=== PATIENT | male | born 1955 | race Caucasian/White ===

== ENCOUNTER 2021-07-08 06:07 | Observation (INO) | payer MEDICARE ==
[~2021-07-08] VITALS: Ht 180.3 cm; Wt 167.8 kg
[2021-07-08] MEDS ORDERED: ONDANSETRON HCL INJ 2MG/ML 2ML 2 MG/ML VIAL IV STA (06:19)
[2021-07-08] MEDS ORDERED: Morphine 2mg Syringe 2 MG/ML SYR IV STA (06:19)
[2021-07-08] MEDS ORDERED: ASPIRIN 81 MG CHEW TAB PO STA (06:19)
[2021-07-08] MEDS ORDERED: NITROGLYCERIN 2% OINT 1 GM PKT TOP ONE (06:30)
[2021-07-08 06:36] LABS: BASOPHILS # (AUTO) 0.1 (0.0-0.1); BASOPHILS % 0.8 % (0.0-1.0); EOSINOPHILS # (AUTO) 0.3 (0.0-0.4); EOSINOPHILS % 2.9 % (0.0-6.0); HEMOGLOBIN 13.3 g/dL (14.0-18.0); LYMPHOCYTES % 18.1 % (18.0-39.1); MEAN CORPUSCULAR HEMOGLOBIN 28.5 pg (28-32); MEAN CORPUSCULAR HGB CONC 30.9 g/dL (31-35); MEAN CORPUSCULAR VOLUME 92.1 fL (81-99); MONOCYTES # (AUTO) 1.2 (0.2-0.8); MONOCYTES % 10.8 % (4.4-11.3); NEUTROPHILS # (AUTO) 7.6 (2.1-6.9); PLATELET COUNT 306 x10e3/uL (140-360); RED BLOOD COUNT 4.67 x10e6/uL (4.3-5.7); RED CELL DISTRIBUTION WIDTH 14.7 % (11.7-14.4)
[2021-07-08 06:51] LABS: INR 0.95; PROTHROMBIN TIME 13.6 seconds (11.9-14.5)
[2021-07-08 06:52] LABS: PARTIAL THROMBOPLASTIN TIME 26.9 seconds (23.8-35.5)
[2021-07-08 06:58] LABS: ALBUMIN 3.5 g/dL (3.5-5.0); ALBUMIN/GLOBULIN RATIO 0.9 (0.8-2.0); ANION GAP 14.1 mmol/L (8-16); CREATININE, SERUM 1.14 mg/dL (0.72-1.25); MAGNESIUM 1.9 MG/DL (1.3-2.1); POTASSIUM 4.1 mmol/L (3.5-5.1)
[2021-07-08 07:06] LABS: CREATINE KINASE MB 1.8 ng/mL (0-5.0)
[2021-07-08] MEDS ORDERED: IOPAMIDOL 370 MG/ML 100 ML INFUS..BTL INJ ONE (07:38)
[2021-07-08] MEDS: DEXAMETHASONE SOD PHOS 10 MG/1 ML VIAL IV SCH (08:10)
[2021-07-08] MEDS ORDERED: FUROSEMIDE INJ 10 MG/ML 4 ML VIAL IV ONE (09:00)
[2021-07-08] MEDS: ASPIRIN 81 MG ENTERIC COATED PO SCH (09:00)
[2021-07-08] MEDS ORDERED: ONDANSETRON HCL INJ 2MG/ML 2ML 2 MG/ML VIAL IV PRN (09:00)
[2021-07-08] MEDS ORDERED: DEXAMETHASONE SOD PHOS 10 MG/1 ML VIAL IV SCH (09:00)
[2021-07-08] MEDS ORDERED: HYDRALAZINE HCL 20 MG/ML VIAL IV PRN (09:00)
[2021-07-08] MEDS ORDERED: Morphine 2mg Syringe 2 MG/ML SYR IV PRN (09:00)
[2021-07-08] MEDS: FAMOTIDINE 20 MG/2 ML VIAL IV SCH ×2 (10:15→21:30)
[2021-07-08 10:17] LABS: BACTERIA,URINE FEW /HPF; CLARITY,URINE CLEAR (CLEAR); COLOR,URINE YELLOW (YELLOW); EPITHELIAL CELLS,URINE FEW /LPF; KETONES,URINE NEGATIVE (NEGATIVE); LEUKOCYTE ESTERASE ,URINE NEGATIVE (NEGATIVE); NITRITE,URINE NEGATIVE (NEGATIVE); PROTEIN,URINE DIPSTICK NEGATIVE (NEGATIVE); URINE UROBILINOGEN 0.2 mg/dL (0.2 - 1); WBC,URINE (MAN) 0-5 /HPF (0-5)
[2021-07-08] MEDS ORDERED: BEBTELOVIMAB 175 MG INJ IV ONE (11:00)
[2021-07-08] MEDS: NITROGLYCERIN 2% OINT 1 GM PKT TOP SCH ×2 (11:43→17:43)
[2021-07-08] MEDS ORDERED: ALBUTEROL SULFATE HFA 8GM INHALATION AEROSOL INH PRN (12:30)
[2021-07-08] MEDS: LISINOPRIL 10 MG TAB PO SCH (13:10)
[2021-07-08 17:00] VITALS: BP 159/74
[2021-07-08 17:13] VITALS: BP 146/81
[2021-07-08 17:15] VITALS: BP 146/81
[2021-07-08] MEDS ORDERED: LOSARTAN-HCTZ1 EAC2 (18:33)
[2021-07-08 20:00] VITALS: BP 136/82
[2021-07-08 20:36] LABS: CREATINE KINASE MB 1.8 ng/mL (0-5.0)
[2021-07-08 21:00] VITALS: BP 136/82
[2021-07-09] VITALS: BP 132/66
[2021-07-09] MEDS: NITROGLYCERIN 2% OINT 1 GM PKT TOP SCH ×4 (06:00→13:23)
[2021-07-09 06:11] LABS: BASOPHILS % 0.2 % (0.0-1.0); EOSINOPHILS # (AUTO) 0.1 (0.0-0.4); EOSINOPHILS % 0.9 % (0.0-6.0); HEMATOCRIT 38.9 % (38.2-49.6); HEMOGLOBIN 12.1 g/dL (14.0-18.0); LYMPHOCYTES # (AUTO) 1.3 (1.0-3.2); LYMPHOCYTES % 11.8 % (18.0-39.1); MEAN CORPUSCULAR HEMOGLOBIN 28.5 pg (28-32); MEAN CORPUSCULAR HGB CONC 31.1 g/dL (31-35); MEAN CORPUSCULAR VOLUME 91.5 fL (81-99); MONOCYTES # (AUTO) 1.2 (0.2-0.8); MONOCYTES % 11.5 % (4.4-11.3); NEUTROPHILS # (AUTO) 8.1 (2.1-6.9); NEUTROPHILS % 75.1 % (38.7-80.0); PLATELET COUNT 311 x10e3/uL (140-360); RED BLOOD COUNT 4.25 x10e6/uL (4.3-5.7); RED CELL DISTRIBUTION WIDTH 14.6 % (11.7-14.4)
[2021-07-09 06:29] LABS: CREATINE KINASE 152 IU/L (30-200)
[2021-07-09 06:32] LABS: ALBUMIN 3.2 g/dL (3.5-5.0); ALBUMIN/GLOBULIN RATIO 0.9 (0.8-2.0); CALCIUM 8.2 mg/dL (8.4-10.2); CHOL/HDL RATIO 3.5 (3.9-4.7); CREATININE, SERUM 1.04 mg/dL (0.72-1.25)
[2021-07-09 08:08] VITALS: BP 160/83
[2021-07-09 08:29] VITALS: BP 160/83
[2021-07-09] MEDS ORDERED: IBUPROFEN400 MG PO (08:49)
[2021-07-09] MEDS ORDERED: ASPIRIN CHEW81 MG PO (08:49)
[2021-07-09] MEDS ORDERED: FUROSEMIDE INJ 10 MG/ML 4 ML VIAL IV SCH (09:00)
[2021-07-09] MEDS ORDERED: POTASSIUM CHLORIDE 10MEQ EA PO SCH (09:00)
[2021-07-09] MEDS: FAMOTIDINE 20 MG/2 ML VIAL IV SCH (09:07)
[2021-07-09] MEDS: ASPIRIN 81 MG ENTERIC COATED PO SCH (09:07)
[2021-07-09] MEDS: LISINOPRIL 10 MG TAB PO SCH (09:08)
[2021-07-09 12:34] VITALS: BP 167/76
[2021-07-09] MEDS ORDERED: NIRMATRELVIR/RITONAVIR 1 EACH TABLET PO SCH (14:00)
== END 2021-07-09 14:40 | disposition home or self-care (01) ==
LOC: ER 06:20 → ERHOLD 08:54 → INTOOBSV 08:54 → MED/SURG3 17:02
PROVIDERS: ADMIT Internal Medicine; ATTEND Internal Medicine
DX: U07.1 COVID-19 (principal); J12.82 Pneumonia due to coronavirus disease 2019; E78.5 Hyperlipidemia, unspecified; E66.01 Morbid (severe) obesity due to excess calories; I16.1 Hypertensive emergency; I11.0 Hypertensive heart disease with heart failure; I50.9 Heart failure, unspecified; S22.42XA Multiple fractures of ribs, left side, initial encounter for closed fracture; W19.XXXA Unspecified fall, initial encounter; N40.0 Benign prostatic hyperplasia without lower urinary tract symptoms; Z68.43 Body mass index [BMI] 50.0-59.9, adult; Z83.3 Family history of diabetes mellitus; Z77.090 Contact with and (suspected) exposure to asbestos; Z88.0 Allergy status to penicillin; M94.0 Chondrocostal junction syndrome [Tietze]
CPT/HCPCS: 36415 ×2; 36556; 71045; 71260; 76937; 80053 ×2; 80061; 81001; 82550 ×2; 82553 ×2; 83735; 83880; 84484 ×2; 85025 ×2; 85610; 85730; 87040; 87086; 93005; 93306; 93970; 94760; 94799; 97139; 99284; G0378 ×2; J0360; J1100; J1940 ×2; J2270; J2405; Q9967; U0002

== ENCOUNTER → 2023-10-12 | Emergency (ER) | payer MEDICARE ==
[~2023-10-12] VITALS: Ht 180.3 cm; Wt 142.0 kg
[~2023-10-12] MED LIST: ASPIRIN CHEW81 MG PO; IBUPROFEN400 MG PO; LOSARTAN-HCTZ1 EAC2
[2023-10-12 16:58] VITALS: PULSE 70; RESP 16; TEMP 98.5; O2SAT 100
[2023-10-12 17:36] LABS: INR 0.97; PROTHROMBIN TIME 13.4 seconds (11.9-14.5)
== END | disposition home or self-care (01) ==
LOC: ER 17:00
DX: D68.9 Coagulation defect, unspecified (principal); I10 Essential (primary) hypertension; I48.91 Unspecified atrial fibrillation; E78.5 Hyperlipidemia, unspecified; H54.62 Unqualified visual loss, left eye, normal vision right eye; Z86.73 Personal history of transient ischemic attack (TIA), and cerebral infarction without residual deficits
CPT/HCPCS: 36415; 85610; 99283

== ENCOUNTER 2024-04-10 12:50 | Inpatient (IN) | payer MEDICARE ==
[~2024-04-10] VITALS: Ht 180.3 cm; Wt 142.0 kg
[2024-04-10 13:53] LABS: BASOPHILS % 0.5 % (0.0-1.0); EOSINOPHILS # (AUTO) 0.2 (0.0-0.4); EOSINOPHILS % 2.8 % (0.0-6.0); HEMATOCRIT 42.4 % (38.2-49.6); HEMOGLOBIN 13.8 g/dL (14.0-18.0); LYMPHOCYTES # (AUTO) 1.3 (1.0-3.2); LYMPHOCYTES % 20.1 % (18.0-39.1); MEAN CORPUSCULAR HEMOGLOBIN 30.3 pg (28-32); MEAN CORPUSCULAR HGB CONC 32.5 g/dL (31-35); MEAN CORPUSCULAR VOLUME 93.2 fL (81-99); MONOCYTES # (AUTO) 0.6 (0.2-0.8); MONOCYTES % 8.5 % (4.4-11.3); NEUTROPHILS # (AUTO) 4.4 (2.1-6.9); NEUTROPHILS % 67.8 % (38.7-80.0); PLATELET COUNT 244 x10e3/uL (140-360); RED BLOOD COUNT 4.55 x10e6/uL (4.3-5.7); RED CELL DISTRIBUTION WIDTH 14.2 % (11.7-14.4); WHITE BLOOD COUNT 6.48 x10e3/uL (4.8-10.8)
[2024-04-10 14:14] LABS: ALBUMIN 3.7 g/dL (3.5-5.0); ALBUMIN/GLOBULIN RATIO 1.2 (0.8-2.0); ANION GAP 14.1 mmol/L (8-16); BILIRUBIN,TOTAL 0.4 mg/dL (0.2-1.2); CALCIUM 8.8 mg/dL (8.4-10.2); CREATININE, SERUM 1.03 mg/dL (0.72-1.25); POTASSIUM 4.1 mmol/L (3.5-5.1); TOTAL PROTEIN 6.9 g/dL (6.5-8.1)
[2024-04-10 15:08] VITALS: TEMP 98.8
[2024-04-10] MEDS ORDERED: ONDANSETRON HCL INJ 2MG/ML 2ML 2 MG/ML VIAL IV PRN (16:00)
[2024-04-10] MEDS ORDERED: SODIUM CHLORIDE FLUSH 10 ML SYR INJ PRN (16:00)
[2024-04-10 16:19] LABS: BACTERIA,URINE FEW /HPF; BILIRUBIN,URINE NEGATIVE (NEGATIVE); CLARITY,URINE TURBID (CLEAR); COLOR,URINE YELLOW (YELLOW); EPITHELIAL CELLS,URINE FEW /LPF; GLUCOSE, URINE NEGATIVE (NEGATIVE); KETONES,URINE NEGATIVE (NEGATIVE); LEUKOCYTE ESTERASE ,URINE LARGE (NEGATIVE); NITRITE,URINE NEGATIVE (NEGATIVE); PH,URINE 6.5 (5 - 7); PROTEIN,URINE DIPSTICK NEGATIVE (NEGATIVE); URINE UROBILINOGEN 0.2 mg/dL (0.2 - 1); WBC,URINE (MAN) >50 /HPF (0-5)
[2024-04-10 17:45] VITALS: PULSE 58; RESP 16
[2024-04-10 18:20] VITALS: BP 148/89; PULSE 61; RESP 19; TEMP 98.2; O2SAT 98
[2024-04-10] MEDS ORDERED: ACETAMINOPHEN 325 MG TAB PO PRN (18:45)
[2024-04-10] MEDS ORDERED: SIMETHICONE 80 MG CHEW PO PRN (18:45)
[2024-04-10] MEDS ORDERED: DOCUSATE SODIUM 100 MG CAP PO PRN (18:45)
[2024-04-10] MEDS ORDERED: ALBUTEROL/IPRATROPIUM 3 ML NEB NEB PRN (18:45)
[2024-04-10 20:00] VITALS: BP_SYST 173; BP_SYST 176; BP_DIAS 88; BP_DIAS 91; PULSE 62; PULSE 63; RESP 17; RESP 20; TEMP 98; TEMP 98.2; O2SAT 95; O2SAT 98
[2024-04-10] MEDS ORDERED: MELATONIN 3 MG TAB PO PRN (21:00)
[2024-04-10 23:19] VITALS: BP 173/91; PULSE 63
[2024-04-10] MEDS: HYDRALAZINE HCL 20 MG/ML VIAL IV STA ×2 (23:28)
[2024-04-11] MEDS ORDERED: POTASSIUM CHLO10 ME1 PO (01:20)
[2024-04-11] MEDS ORDERED: HYDROXYZIN10 MG/5 ML PO ×2 (01:20→01:27)
[2024-04-11] MEDS ORDERED: CARVEDILOL3.125 MG PO (01:20)
[2024-04-11] MEDS ORDERED: MEMANTINE HCL5 MG (01:20)
[2024-04-11] MEDS ORDERED: WARFARIN SODIUM3 MG PO (01:20)
[2024-04-11] MEDS ORDERED: FUROSEMIDE40 MG PO (01:20)
[2024-04-11] MEDS ORDERED: ALPRAZOLAM0.25 M1 PO (01:20)
[2024-04-11] MEDS ORDERED: ATORVASTATIN CA80 MG PO (01:20)
[2024-04-11] MEDS ORDERED: LEVETIRACETAM500 MG PO (01:20)
[2024-04-11] MEDS ORDERED: OXCARBAZEPINE300 MG PO (01:20)
[2024-04-11] MEDS ORDERED: BENZONATATE100 MG PO (01:20)
[2024-04-11] MEDS ORDERED: FLOMAX0.4 MG PO (01:20)
[2024-04-11] MEDS ORDERED: LISINOPRIL10 MG PO (01:20)
[2024-04-11] MEDS ORDERED: HYDROXYZINE HCL10 MG PO (01:31)
[2024-04-11] MEDS: METOPROLOL TARTRATE INJ 1 MG/ML VIAL IV PRN (01:45)
[2024-04-11 02:54] VITALS: BP 174/82; PULSE 68; RESP 20; TEMP 98.5; O2SAT 100
[2024-04-11 06:02] LABS: BASOPHILS % 0.5 % (0.0-1.0); EOSINOPHILS # (AUTO) 0.2 (0.0-0.4); EOSINOPHILS % 2.1 % (0.0-6.0); HEMATOCRIT 38.8 % (38.2-49.6); HEMOGLOBIN 12.8 g/dL (14.0-18.0); LYMPHOCYTES # (AUTO) 1.9 (1.0-3.2); LYMPHOCYTES % 24.1 % (18.0-39.1); MEAN CORPUSCULAR HEMOGLOBIN 30.6 pg (28-32); MEAN CORPUSCULAR VOLUME 92.8 fL (81-99); MONOCYTES # (AUTO) 0.8 (0.2-0.8); MONOCYTES % 9.7 % (4.4-11.3); NEUTROPHILS # (AUTO) 4.9 (2.1-6.9); NEUTROPHILS % 63.3 % (38.7-80.0); PLATELET COUNT 232 x10e3/uL (140-360); RED BLOOD COUNT 4.18 x10e6/uL (4.3-5.7); RED CELL DISTRIBUTION WIDTH 13.7 % (11.7-14.4); WHITE BLOOD COUNT 7.76 x10e3/uL (4.8-10.8)
[2024-04-11 06:40] LABS: ALBUMIN 3.4 g/dL (3.5-5.0); ALBUMIN/GLOBULIN RATIO 1.2 (0.8-2.0); ANION GAP 11.7 mmol/L (8-16); BILIRUBIN,TOTAL 0.6 mg/dL (0.2-1.2); CALCIUM 8.7 mg/dL (8.4-10.2); CREATININE, SERUM 0.81 mg/dL (0.72-1.25); POTASSIUM 3.7 mmol/L (3.5-5.1); TOTAL PROTEIN 6.2 g/dL (6.5-8.1)
[2024-04-11 08:00] VITALS: BP 168/85; PULSE 73; RESP 18; TEMP 97.5; O2SAT 98
[2024-04-11] MEDS: ASPIRIN 81 MG CHEW TAB PO SCH (08:46)
[2024-04-11 09:51] VITALS: BP 168/85; PULSE 73; RESP 18; TEMP 97.5; O2SAT 98
[2024-04-11] MEDS: HYDROCORTISONE .5% 30 GM TUBE TOP SCH (10:17)
[2024-04-11] MEDS: HYDROXYZINE PAMOATE 25 MG CAP PO SCH (10:17)
[2024-04-11 12:00] VITALS: BP 166/81; PULSE 60; RESP 19; TEMP 97.7; O2SAT 98
[2024-04-11 16:00] VITALS: BP 149/87; PULSE 63; RESP 18; TEMP 97.8; O2SAT 95
[2024-04-11] MEDS: ENOXAPARIN SOD INJ 40 MG/0.4 ML SYR SC SCH (17:37)
[2024-04-11 20:00] VITALS: BP_SYST 136; BP_SYST 149; BP_DIAS 69; BP_DIAS 87; PULSE 58; PULSE 65; RESP 18; RESP 20; TEMP 97.6; O2SAT 99
[2024-04-12] VITALS: BP 158/95; PULSE 55; RESP 18; TEMP 97.2; O2SAT 100
[2024-04-12 04:00] VITALS: BP 173/92; PULSE 58; RESP 17; TEMP 97.1; O2SAT 99
[2024-04-12 08:00] VITALS: BP 136/84; PULSE 88; RESP 17; TEMP 98.2; O2SAT 98
[2024-04-12 09:00] VITALS: BP 136/74; PULSE 84; RESP 16; TEMP 98.2; O2SAT 99
[2024-04-12] MEDS ORDERED: CEPHALEXIN500 MG PO (10:24)
[2024-04-12 12:42] VITALS: PULSE 86; RESP 18; O2SAT 97
== END 2024-04-12 20:12 | disposition home or self-care (01) | DRG 690 ==
LOC: ER 13:40 → ERHOLD 15:50 → MED/SURG3 18:20
PROVIDERS: ADMIT Internal Medicine; ATTEND Internal Medicine
DX: N39.0 Urinary tract infection, site not specified (principal); I48.20 Chronic atrial fibrillation, unspecified; Z16.24 Resistance to multiple antibiotics; I10 Essential (primary) hypertension; G30.9 Alzheimer's disease, unspecified; F02.80 Dementia in other diseases classified elsewhere, unspecified severity, without behavioral disturbance, psychotic disturbance, mood disturbance, and anxiety; B96.89 Other specified bacterial agents as the cause of diseases classified elsewhere; Z79.82 Long term (current) use of aspirin; Z86.73 Personal history of transient ischemic attack (TIA), and cerebral infarction without residual deficits; Z86.16 Personal history of COVID-19
CPT/HCPCS: 36415; 80053; 81001; 85025; 87086; 94799; 99252; 99284; J0360; J0696; J1650; Q0177

== ENCOUNTER 2024-08-28 10:31 | Emergency (ER) | payer MEDICARE ==
[~2024-08-28] VITALS: Ht 180.3 cm; Wt 137.9 kg
[~2024-08-28 10:31] MED LIST changes: +ALPRAZOLAM0.25 M1 PO; +ATORVASTATIN CA80 MG PO; +BENZONATATE100 MG PO; +CARVEDILOL3.125 MG PO; +CEPHALEXIN500 MG PO; +FLOMAX0.4 MG PO; +FUROSEMIDE40 MG PO; +HYDROXYZIN10 MG/5 ML PO; +HYDROXYZINE HCL10 MG PO; +LEVETIRACETAM500 MG PO; +LISINOPRIL10 MG PO; +MEMANTINE HCL5 MG; +OXCARBAZEPINE300 MG PO; +POTASSIUM CHLO10 ME1 PO; +WARFARIN SODIUM3 MG PO
[2024-08-28 10:56] VITALS: PULSE 65; RESP 16; TEMP 98.1; O2SAT 100
[2024-08-28 12:08] LABS: BASOPHILS % 0.5 % (0.0-1.0); EOSINOPHILS # (AUTO) 0.2 (0.0-0.4); EOSINOPHILS % 2.8 % (0.0-6.0); HEMATOCRIT 40.8 % (38.2-49.6); HEMOGLOBIN 13.3 g/dL (14.0-18.0); LYMPHOCYTES # (AUTO) 1.3 (1.0-3.2); LYMPHOCYTES % 21.6 % (18.0-39.1); MEAN CORPUSCULAR HEMOGLOBIN 30.5 pg (28-32); MEAN CORPUSCULAR HGB CONC 32.6 g/dL (31-35); MEAN CORPUSCULAR VOLUME 93.6 fL (81-99); MONOCYTES # (AUTO) 0.8 (0.2-0.8); MONOCYTES % 12.2 % (4.4-11.3); NEUTROPHILS # (AUTO) 3.9 (2.1-6.9); NEUTROPHILS % 62.7 % (38.7-80.0); PLATELET COUNT 217 x10e3/uL (140-360); RED BLOOD COUNT 4.36 x10e6/uL (4.3-5.7); RED CELL DISTRIBUTION WIDTH 13.6 % (11.7-14.4); WHITE BLOOD COUNT 6.15 x10e3/uL (4.8-10.8)
[2024-08-28 12:24] LABS: INR 2.8; PARTIAL THROMBOPLASTIN TIME 39.1 seconds (23.8-35.5); PROTHROMBIN TIME 31.5 seconds (11.9-14.5)
[2024-08-28 12:26] LABS: BILIRUBIN,URINE NEGATIVE (NEGATIVE); CLARITY,URINE CLEAR (CLEAR); COLOR,URINE YELLOW (YELLOW); GLUCOSE, URINE NEGATIVE (NEGATIVE); KETONES,URINE NEGATIVE (NEGATIVE); LEUKOCYTE ESTERASE ,URINE SMALL (NEGATIVE); NITRITE,URINE NEGATIVE (NEGATIVE); PH,URINE 5.5 (5 - 7); PROTEIN,URINE DIPSTICK NEGATIVE (NEGATIVE); URINE UROBILINOGEN 1 mg/dL (0.2 - 1)
[2024-08-28 12:35] LABS: ALBUMIN 3.6 g/dL (3.5-5.0); ALBUMIN/GLOBULIN RATIO 1.2 (0.8-2.0); ANION GAP 12.2 mmol/L (8-16); BILIRUBIN,TOTAL 0.7 mg/dL (0.2-1.2); CALCIUM 8.7 mg/dL (8.4-10.2); CREATININE, SERUM 1.09 mg/dL (0.72-1.25); MAGNESIUM 1.7 MG/DL (1.3-2.1); POTASSIUM 4.2 mmol/L (3.5-5.1); TOTAL PROTEIN 6.7 g/dL (6.5-8.1)
[2024-08-28 12:37] LABS: BACTERIA,URINE MODERATE /HPF; EPITHELIAL CELLS,URINE FEW /LPF; RBC,URINE 21-50 /HPF (0-5); WBC,URINE (MAN) 21-50 /HPF (0-5)
[2024-08-28 12:41] LABS: TROPONIN I 0.008 ng/mL (0-0.300)
[2024-08-28] MEDS ORDERED: CEFDINIR300 MG PO (13:03)
== END 2024-08-28 13:20 | disposition home or self-care (01) ==
LOC: ER 10:41
DX: R51.9 Headache, unspecified (principal); N39.0 Urinary tract infection, site not specified; I10 Essential (primary) hypertension; I48.91 Unspecified atrial fibrillation; I50.9 Heart failure, unspecified; E78.5 Hyperlipidemia, unspecified; G30.9 Alzheimer's disease, unspecified; F02.80 Dementia in other diseases classified elsewhere, unspecified severity, without behavioral disturbance, psychotic disturbance, mood disturbance, and anxiety; R94.31 Abnormal electrocardiogram [ECG] [EKG]; Z86.73 Personal history of transient ischemic attack (TIA), and cerebral infarction without residual deficits
CPT/HCPCS: 36415; 70450; 71045; 80053; 81001; 83735; 84484; 85025; 85610; 85730; 87086; 93005; 99284